=== PATIENT | female | born 1970 | race Hispanic/Latino ===

== ENCOUNTER 2022-02-22 17:52 | Emergency (ER) | payer OTHER ==
--- OUTSIDE RECORDS SUMMARY | 2022-02-22 17:55 | XMS REPORT | Continuity of Care Document ---
:1970 Author Organization [facility] t Address [address] [place] [address] Care Team Providers Name Role Phone JESUSITA DAVE Primary Care Physician Unavailable Maria Elena Carlson Attending Clinician MARIA ELENA SMITH Attending Clinician Unavailable Doctor Unassigned, [place] Attending Clinician Unavailable Priscila Jackson RN Attending Clinician Unavailable Jesusita Mac Attending Clinician DESIRAE HADDAD Attending Clinician Unavailable Desirae Wang Attending Clinician JESUSITA DAVE Attending Clinician Unavailable ROSALINA HELM Attending Clinician Unavailable Payers Payer Name Policy Type Policy Number Effective Date Expiration Date S ource Problems Condition Condition Condition Status Onset Resolution Last Treating Co mments Source Name Details Category Date Date Treatment Clinician Date Fever, Fever, Disease Active Univers unspecifie unspecifie 4-11 it y of d fever d fever 00:00: [place] cause cause 00 Medical Branch Cough Cough Disease Active Univers 4-11 ity of 00:00: 00 Medical Branch Flu Flu Disease Active Univers 4-11 ity of 00:00: 00 Medical Branch CRP CRP Disease Active Univers elevated elevated 5-30 ity of 00:00: [place] 00 Medical Branch Ankle pain Ankle pain Disease Active 2017- U nivers 5-30 ity of 00:00: [place] [facility] Branch Immunizati Immunizati Disease Active U nivers on on 30 ity of counseling counseling 00:00: [address] Acute pain Acute pain Disease Active U nivers of left of left 30 ity of shoulder shoulder 00:00: [address] Elderly Elderly Disease Active Overview: Univ ers multigravi multigravi 8-30 Formattin ity of da da 00:00: g of this [place] delivered delivered 00 note [facility] might be Branch different from the original. 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 Allergies, Adverse Reactions, Alerts Allergy Allergy Status Severity Reaction(s) Onset Inactive Treating Comm ents Source Name Type Date Date Clinician NO KNOWN Drug Active Univers ALLERGIE Class ity of S [facility] [place] [facility] Social History Social Habit Start Date Stop Date Quantity Comments Source Exposure to Not sure [facility] SARS-CoV-2 [facility] (event) Branch Alcohol intake 2021-04-06 2021-04-06 Current [facility] 00:00:00 00:00:00 non-drinker of [facility] alcohol Branch (finding) Tobacco use and 2017-07-17 2017-07-17 Never used Universit y of exposure 00:00:00 00:00:00 [facility] [place] [facility] Sex Ass[birth year] At [birth year] Universit y of 00:00:00 00:00:00 [facility] [place] [facility] Smoking Status Start Date Stop Date Source Never smoker [facility] Medications Ordered Filled Start Stop Current Ordering Indication Dosage Frequency Signature Comments Components Source Medication Medication Date Date Medication? Clinician (SIG) Name Name HOMEOPATHIC Yes Take by Uni vers DRUGS (HAIR 4-11 mouth. ity of AND SKIN 17:19: [place] ORAL) [address] [place] [address] Branch multivitami Yes 1{capsu Take 1 U nivers n capsule 4-11 le} capsule by ity of 17:19: mouth [place] [id number] daily. Medical Branch CALCIUM Yes Take by Univers CARBONATE 4-11 mouth. ity of (TUMS ORAL) 17:19: [place] [address] Medical Branch om Yes Take by Univers 3/E/linol/a 4-11 mouth. ity of la/oleic/gl 17:19: [place] a/lip Medical (OMEGA Branch 3-6-9 ORAL) ibuprofen Yes 200mg Take 200 Uni vers (ADVIL) 200 4-11 mg by ity of mg tablet 17:19: mouth [place] 42 every 6 Medical (six) Branch hours as needed. pheniramine Yes Take by Uni vers /p-eph/acet 07-19 mouth. ity of aminophn 16:17: [place] (THERAFLU 15 Medical SINUS AND Branch COLD ORAL) benzonatate 2021- No [id number] 200mg Take 1 Univers 200 mg 07-19 capsule by ity of capsule 00:00: 04:59 mouth 3 [place] 00 :00 (three) Medical times Branch daily as needed for Cough for up to 7 days. oseltamivir 2021- No [id number] 75mg Take 1 Univers 75 mg 07-19 capsule by ity of capsule 00:00: 04:59 mouth 2 [place] 00 :00 (two) Medical times Branch daily for 5 days. montelukast Yes [id number] 10mg Take 1 Univers (SINGULAIR) 6-30 tablet by ity of 10 mg 00:00: mouth [place] tablet 00 daily. Medical Branch benzonatate Yes [id number] 100mg Take 1 Univers (TESSALON 6-30 capsule by ity of PERLES) 100 00:00: mouth 3 [place] mg capsule 00 (three) Medica l times Branch daily. Vital Signs Vital Name Observation Time Observation Value Comments Source Systolic blood 2021-07-19 21:17:00 106 mm[Hg] Univer sity of pressure [facility] [place] [facility] Diastolic blood 2021-07-19 21:17:00 69 mm[Hg] [facility] [place] Heart rate 2021-07-19 21:17:00 82 /min [facility] Body temperature 2021-07-19 21:17:00 36.89 [facility] height 2021-07-19 21:17:00 152.4 cm [facility] Body weight 2021-07-19 21:17:00 82.555 kg [facility] BMI 2021-07-19 21:17:00 35.54 kg/m2 [facility] Oxygen saturation in 2021-07-19 21:17:00 99 /min [facility] Arterial blood by [facility] Pulse oximetry Branch Procedures Procedure Date / Time Performed Performing Clinician Sourc e POCT MOLECULAR FLU 2021-07-19 22:03:00 Maria Elena Smithmaxine mitchell [facility] Encounters Start End Encounter Admission Attending Care Care Encounter Source Date/Time Date/Time Type Type Clinicians Facility Department ID 2021-07-19 2021-07-19 Office Sarah [facility] [id number] Univers 16:00:00 17:17:49 Visit Maria Elena HEALTH [id number] it y of [place] [id number] [place] PEDRO?BLEA [phone] [address] MEDICAL OFFICE [facility] 2021-07-19 2021-07-19 Outpatient R SARAH [facility] [id number] Univers 16:00:00 17:17:49 MARIA ELENA benavides [facility] 2021-07-19 2021-07-19 Outpatient R SARAH [facility] [id number] Univers 16:00:00 16:00:00 MARIA [address]LENA benavides [facility] 2021-07-19 2021-07-19 Orders Doctor ROSALINA [id number] Univers 00:00:00 00:00:00 Only Unassigned, ONEAL [id number] ity of [place] [facility] [id number] [place] [id number] [facility] [address] [place] 2021-04-08 2021-04-08 Nurse Priscila Jackson [id number] Univers 00:00:00 00:00:00 Triage ONEAL [id number] it y of [facility] [id number] [place] [id number] [facility] [address] [place] 2021-04-08 2021-04-08 Telephone Jolie [facility] [id number] Univers 00:00:00 00:00:00 Jesusita Zack HEALTH [id number] i ty of [place] [id number] [place] PEDRO?BLEA [phone] De dical [address] MEDICAL OFFICE BUILDING 2021-04-06 2021-04-06 Outpatient R HANSA [facility] [id number] Univers 15:00:00 15:02:[address] [facility] 2021-04-06 2021-04-06 Outpatient R HANSA [facility] [id number] Univers 15:00:00 15:02:[address] [facility] 2021-04-06 2021-04-06 [facility] [id number] Univers 15:00:00 15:02:53 Visit Desirae [facility] [id number] it y of [place] [id number] [place] PEDRO?BLEA [id number] [address] MEDICAL OFFICE BUILDING 2020-10-07 2020-10-07 Outpatient R [facility] [id number] Univers 13:20:00 13:20:00 [facility] 2020-08-19 2020-08-19 [facility] [id number] Univers 09:00:00 09:00:00 JESUSITA [facility] 2020-06-10 2020-06-10 [facility] [id number] Univers 11:20:00 11:20:00 [facility] 2020-06-10 2020-06-10 Outpatient R [facility] [id number] Univers 09:40:00 09:40:00 [facility] 2020-04-10 2020-04-10 [facility] [id number] Univers 15:40:00 15:40:00 ROSALINA [facility] Results Test Description Test Time Test Comments Results Result Comments Source POCT MOLECULAR FLU 2021-07-19 22:06:27 Test Item Value Reference Range Interpretation Comme nts POCT Molecular FluA (test code = 48104-4) Positive Negative A Lab Interpretation (test code = 88271-0) Abnormal [facility]
[2022-02-22] MEDS ORDERED: IBUPROFEN 200 MG TAB PO ONE (18:17)
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
--- NOTE | 2022-02-22 19:12 | RAD REPORT ---
EXAM DESCRIPTION: CT - C Spine Wo Con - 02/22/2022 6:50 pm COMPARISON: None. TECHNIQUE: Axial 2 mm thick images of the cervical spine were obtained with sagittal and coronal rec onstruction images generated and reviewed. All CT scans are performed using dose optimization technique as appropriate and may include automated exposure control or mA/KV adjustment according to patient size. FINDINGS: Cervical body height and alignment are normal. No disk space narrowing. No fracture or acu te bony abnormality. No paraspinal mass or hematoma. Central canal detail is inherently limited on CT imaging. IMPRESSION: Negative CT cervical spine examination.
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
[2022-02-22 20:04] VITALS: BP 130/72; TEMP 98.3
[2022-02-22 20:08] VITALS: O2SAT 96
== END 2022-02-22 19:50 | disposition home or self-care (01) ==
LOC: ER 17:52
DX: S39.012A Strain of muscle, fascia and tendon of lower back, initial encounter (principal); S16.1XXA Strain of muscle, fascia and tendon at neck level, initial encounter; S29.012A Strain of muscle and tendon of back wall of thorax, initial encounter
CPT/HCPCS: 72100; 72125; 99283